=== PATIENT | male | born 1965 | race Caucasian/White ===

== ENCOUNTER 2017-03-08 09:26 | Emergency (ER) | payer OTHER ==
[~2017-03-08] VITALS: Ht 177.8 cm; Wt 97.3 kg
[2017-03-08 09:31] VITALS: BP_SYST 139; PULSE 71; RESP 12; O2SAT 97
--- NOTE | 2017-03-08 09:40 | ED.REPORT ---
HPI-Abd Pain M 40 and Over Date of Service Mar 08, 2017 ED Provider: Doc,Ed MD The patient is a 52 year old male with history of diabetes mellitus, who presents to the emergency department complaining of RLQ abdominal pain that began 10 days ago. His pain does not radiate anywhere. His pain is exacerbated with lifting and walking. His pain is unchanged with eating. He has taken ibuprofen with some relief. The patient has also noticed a subjective fever, chills, and nausea. He was seen by his regular doctor on Sunday who was concerned for an appendicitis. The patient had a CT scan this morning that has not been read yet. He presents to the emergency department because his pain is more severe today. He denies constipation, diarrhea, bloody stools, dysuria, hematuria, back pain, flank pain, fever or chills. 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 Pt is not allergic to topical iodine or contrast media. kld 03/08/17 General Time Seen by MD: 09:39 Chief Complaint Abdominal pain Hx Obtained From: Patient, Spouse Arrived By: Walk-in Sudden in Onset?: No Onset Occurred: More than a week ago... Symptom Duration: Since onset Progression since Onset: Constant, Gradually worsening Location: : RLQ Quality: Painful Severity: Current: Moderate Severity: Maximum: Severe Recent Healthcare: No recent hospitalization, Recent doctor visit Similar Sx Previous: No Past Medical History Past Medical History Reports: Diabetes mellitus Past Surgical History Varicose vein surgery Left knee surgery Family History Noncontributory Smoking History Former Smoker Social History Other Social History: Good social support, , Local resident Ambulatory Status Independent Review of Systems Constitutional: Reports: Chills, Fever (subjective) GI: Reports: Abdominal pain, Nausea, Denies: Bloody/tarry stool, Constipation, Diarrhea, Hematochezia, Vomiting Male: Denies Dysuria, Denies Flank pain, Denies Hematuria Musculoskeletal: Denies: Back pain Complete sys rev & neg: except as marked. Physical Exam Initial Vital Signs Vital Signs (First) Date Time Temp Pulse Resp B/P Pulse Ox O2 Delivery O2 Flow Rate FiO2 03/08/17 09:31 36.5 71 12 139/ 97 Room Air Initial VS: Reviewed Head / Eyes: Atraumatic, Normocephalic, PERRL ENT: Mucous membranes moist, Conjunctiva normal, No scleral icterus Neck: Supple, Non-tender, Full range of motion Lymphatic: No lymphadenopathy Extremities: Vascular intact, Neuro intact, No swelling, No tenderness Skin: Warm, Dry, No cyanosis Neurologic: Alert, Oriented, Nonfocal Psychiatric: Mood/affect normal, Behavior normal, Normal thought content General/Constitutional: Awake, Alert Respiratory / Chest: Atraumatic, Breath sounds NL, Breath sounds = bilat, No respiratory distress, No rales, No rhonchi, No wheezing Cardiovascular: Heart rate NL, Regular rhythm, Heart sounds NL, No gallop, No murmurs, No rubs, Peripheral circulation NL Abdomen: Soft, McBurney's non-tender, No guarding, No rebound, BS normoactive, No distention, No hernia, No palpable mass, No pulsatile mass Tenderness/Guarding/Rebound: Positive: Tender RLQ... (Mild) Back: Atraumatic, Inspection NL, Full range of motion, No midline vertebral tend, No CVA tenderness Interpretation & Diagnostics Lab Results Interpretation Result Diagram: 03/08/17 1010 03/08/17 1010 Test 03/08/17 10:10 White Blood Count 5.5th/mm3 (3.8-10.1) Red Blood Count 5.31mil/mm3 (4.40-5.80) Hemoglobin 16.0g/dL (13.8-17.2) Hematocrit 43.8% (41.0-50.0) Mean Corpuscular Volume 82.5fL (81-100) Mean Corpuscular Hemoglobin 30.1pg (27.0-35.0) Mean Corpuscular Hemoglobin Concent 36.5% (32.0-37.0) Red Cell Distribution Width 12.6% (12.3-15.4) Platelet Count 215bil/L (150-400) Neutrophils (%) (Auto) 49.9% (40-74) Lymphocytes (%) (Auto) 41.0% (14-46) Monocytes (%) (Auto) 5.4% (4-12) Eosinophils (%) (Auto) 2.9% (0-5) Basophils (%) (Auto) 0.4% (0-3) Sodium Level 134mEq/L (134-144) Potassium Level 4.5mEq/L (3.5-5.2) Chloride Level 97mEq/L (97-108) Carbon Dioxide Level 24mmol/L (18-29) Blood Urea Nitrogen 23mg/dL (6-24) Creatinine 0.82mg/dL (0.76-1.27) Estimat Glomerular Filtration Rate 104mL/min (>59) Glucose Level 287mg/dL (60-99) Calcium Level 9.4mg/dL (8.5-10.1) Magnesium Level 1.8mg/dL (1.6-2.6) Total Bilirubin 0.6mg/dL (0.0-1.2) Aspartate Amino Transf (AST/SGOT) 16U/L (0-50) Alanine Aminotransferase (ALT/SGPT) 28U/L (0-44) Alkaline Phosphatase 87U/L (25-150) Total Protein 7.3g/dL (6.4-8.4) Albumin 4.3g/dL (3.4-5.0) Lipase 38U/L (13-60) Hold Lopez Top Tube Received (Received) CT Abd / Pelvis Interpretation IMPRESSION: Normal appendix. No imaging explanation is found for this patient's presenting history of right lower quadrant pain. Incidental note is made of: Small hiatal hernia Fat-containing bilateral inguinal hernias Bilateral groin clips Minimal sigmoid diverticulosis, without active diverticulitis. Dictated by: Qeuntin Harrison M.D. on 03/08/2017 at 9:58 Study type: Abdominal CT IV contrast Interpretation / Wet Read by: Interpret - Radiologist Re-Eval/Medical Decision Med Decision/Clinical Course Nonspecific abdominal pain with a reassuring CT scan and labs. Pain is improved. We will discharge. Patient declined any further pain management. Return and follow-up precautions given. Source of Hx: Old records Time of Eval: 11:07 Re-Evaluation/Progress Note: Rechecked the patient. Discussed results, diagnosis, and plan for discharge. All questions were addressed. Counseled Regarding: Diagnosis, Lab results, Need for follow-up, When/why to return to ED Discharge & Departure Primary Impression: RLQ abdominal pain Disposition: Home Vital Signs - All Vital Signs Date Time Temp Pulse Resp B/P Pulse Ox O2 Delivery O2 Flow Rate FiO2 03/08/17 11:45 36.5 72 20 120/78 99 Room Air 03/08/17 09:31 36.5 71 12 139/ 97 Room Air )( All Prior VS Reviewed: Yes Condition: Stable Patient Instructions: Acute Abdominal Pain (ED) Additional Instructions: Thank you for entrusting us with your care today. Your workup today is reassuring. There is no evidence of an appendicitis or anything else acutely dangerous. Continue taking Tylenol and ibuprofen. Call your regular doctor today to discuss your emergency room visit and schedule a followup appointment. Return to the emergency department for any new or concerning symptoms. Referrals: Marycruz Garcia (PCP) Scribe Attestation Portions of this note were transcribed by Dana Love. I, Dr. Holguin personally performed the history, physical exam and medical decision-making; I reviewed and confirmed the accuracy of the information in the transcribed note. Signed by: Low Carson, 03/08/17 at 1120. copies to: Marycurz Garcia Timothy S DO Mar 08, 2017 09:40 Dana Love Mar 08, 2017 09:49
[2017-03-08] MEDS ORDERED: 0.9% Sodium Chloride 1,000 ML IV ONE (09:47)
[2017-03-08] MEDS ORDERED: Ketorolac 15 mg/mL Inj IVPUSH ONE (09:50)
[2017-03-08] MEDS ORDERED: Ondansetron 2 mg/mL 2 mL Inj IVPUSH PRN (09:50)
[2017-03-08 10:25] LABS: MONOCYTES % (AUTO) 5.4 % (4-12); Mean Corpuscular Volume 82.5 fL (81-100); NEUTROPHILS % (AUTO) 49.9 % (40-74)
[2017-03-08 10:28] LABS: BASOPHILS % (AUTO) 0.4 % (0-3); EOSINOPHILS % (AUTO) 2.9 % (0-5); Mean Corpuscular Hemoglobin 30.1 pg (27.0-35.0); Platelet Count 215 bil/L (150-400)
[2017-03-08 10:48] LABS: Magnesium 1.8 mg/dL (1.6-2.6)
[2017-03-08 11:45] VITALS: BP 120/78; PULSE 72; RESP 20; O2SAT 99
== END 2017-03-08 11:46 | disposition home or self-care (01) ==
LOC: SED 09:26
DX: R10.31 Right lower quadrant pain (principal); R50.9 Fever, unspecified; R11.0 Nausea; E11.9 Type 2 diabetes mellitus without complications; Z87.891 Personal history of nicotine dependence; Z88.5 Allergy status to narcotic agent; Z88.8 Allergy status to other drugs, medicaments and biological substances
CPT/HCPCS: 36415; 80053; 83690; 83735; 85025; 96361; 96374; 96375; 99284; J1885; J2405; J7030